=== PATIENT | female | born 1995 | race Caucasian/White ===

== ENCOUNTER 2024-05-19 08:55 | Outpatient (CLI) | payer BC, SELFPAY ==
[2024-05-19 09:37] LABS: Hematocrit 32.8 % (37.0-47.0); Hemoglobin 10.3 g/dL (12.0-15.0); Immature Platelet Fraction Pct 17.2 % (0.9-11.2); Mean Corpuscular HGB Conc 31.4 g/dl (32-36); Mean Corpuscular Hemoglobin 27.1 pg (26-34); Mean Corpuscular Volume 86.3 fl (80-100); Mean Platelet Volume 13.1 fl (7.4-10.4); Platelet Count Result 185 k/mm3 (150-375); Red Cell Distribution Width 14.4 % (11.5-14.5); White Blood Count 10.9 K/mm3 (4.5-10.0)
[2024-05-19 10:21] LABS: HIV 1/2 Ab P24 Ag Result Negative (Negative)
[2024-05-19 13:36] LABS: Rapid Plasma Reagin Non-Reactive (NonReactive)
== END 2024-05-19 08:56 | disposition home or self-care (01) ==
LOC: ANHLAB 09:01
PROVIDERS: PCP Family Medicine; Visit Provider Obstetrics & Gynecology
DX: Z34.93 Encounter for supervision of normal pregnancy, unspecified, third trimester (principal); Z3A.00 Weeks of gestation of pregnancy not specified
CPT/HCPCS: 36415; 85027; 85055; 86592; 86703; 86850; 86900; 86901; G0432

== ENCOUNTER 2024-05-21 05:23 | Inpatient (IN) | payer BC, SELFPAY ==
[2024-05-21] VITALS (57 sets, daily range): BP systolic 83–131; BP diastolic 49–108; PULSE 55–104; RESP 12–18; TEMP 36.7–36.9; O2SAT 94–100; BMI 30.5
--- NOTE | 2024-05-21 06:14 | PM.IMHP ---
H&P: HPI History of Present Illness Date/Time: 05/21/24 06:14 Chief Complaint: Repeat section Narrative: 29-year-old 2 para 1 with previous section and a last menstrual period of 08/21/2023, EDC of 05/27/2024, presents at 39 weeks gestation for repeat section. She is negative for group B strep that she had early ultrasound confirming dates she declined attempt at vaginal after Review of Systems Review of Systems: All systems reviewed & are unremarkable except as noted in HPI and below PMFSH Family History Family History Father Cerebrovascular accident Social History Social History Substance use: never Spiritual care concerns: No Meds Home Medications and Allergies Home Medications Medication Instructions Recorded Confirmed Type vits no.126-ferrous fum 1 tablet PO DAILY 05/14/24 05/14/24 History 28 mg iron-folic acid 800 mcg tablet (Classic ) Allergies Allergy/AdvReac Type Severity Reaction Status Date / Time No Known Allergies Allergy Verified 05/14/24 13:29 Exam Const: General: cooperative, healthy appearing and comfortable Nutritional Appearance: average body habitus Orientation/consciousness: oriented to person, oriented to place and oriented to time HENMT: Head: normal to inspection Resp: Effort & Inspection: normal respiratory effort Cardio: Rate: regular rate Rhythm: regular rhythm Heart sounds: S1 normal heart sound present and S2 normal heart sound present GI: Inspection: normal to inspection ( gravid soft uterus) : External Female Exam: normal external appearance Speculum Exam - Vagina: normal appearance of the vagina Speculum Exam - Cervix: normal appearance of the cervix Assessment and Plan Assessment and plan (1) Term : Code(s): Z34.90 - Encounter for supervision of normal , unspecified, unspecified trimester Status: Acute (2) Previous section: Code(s): Z98.891 - History of uterine scar from previous surgery Status: Acute Assessment and Plan: repeat low-transverse section
--- NOTE | 2024-05-21 06:17 | WPDHPUPDATE1 ---
History and Physical Update Update Date/Time: 05/21/24 06:17 History and Physical has been reviewed, including an updated exam of the patient. There are NO changes in the patient's condition. Risks, benefits, and alternatives have been discussed and questions answered. Patient agrees to proceed with procedure.
[2024-05-21] MEDS: ACETAMINOPHEN 500 MG TABLET 1000 MG PO (06:18)
[2024-05-21] MEDS: LACTATED RINGERS 1,000 ML 999 ML IV CONT ×2 (06:28→07:08)
--- NOTE | 2024-05-21 06:31 | LDADM ---
This patient, Sandy Jiang, was admitted to Labor/Delivery/Recovery 120 on 05/21/24 at 05:23. Plans for labor, pain management and were discussed with patient. Patient/family oriented to hospital policies and general routines including ID bracelet, bed and alarms, visiting hours, pain management, procedures, bathroom and other care routines, personal items, smoking policy, room service/diet and guest tray routines, security routines, and visiting hours. Patient/Family are encouraged to report perceived risks to care and to ask questions if they do not understand what they are told or what they should do. See OBIX for further documentation.
[2024-05-21] MEDS: ONDANSETRON INJ 4 MG/2 ML VIAL IV PUSH (07:04)
[2024-05-21] MEDS: FAMOTIDINE 20 MG/2 ML VIAL IV PUSH (07:06)
--- NOTE | 2024-05-21 07:18 | P.PNAN_ITS ---
Anes - Initial Pre Proc Eval Procedure: Operation Date: 05/21/24 07:30 Proposed Procedures p Repeat Section - Souleymane Davis MD Date/Time: 05/21/24 07:18 Surgeon: Souleymane Davis MD Pre Op Diagnosis: C/S Patient Data Age: 29 Gender: F Height: 1.52 m Weight: 71 kg Last Vital Signs Pulse 76 05/21/24 06:45 BP 115/76 05/21/24 06:45 Allergies Allergy/AdvReac Type Severity Reaction Status Date / Time No Known Allergies Allergy Verified 05/14/24 13:29 Home Medications Medication Instructions Recorded Confirmed Type vits no.126-ferrous fum 1 tablet PO DAILY 05/14/24 05/21/24 History 28 mg iron-folic acid 800 mcg tablet (Classic ) hydrocodone 5 mg-acetaminophen 325 1 tablet PO Q4H PRN pain #30 tabs 05/21/24 Rx mg tablet Patient hx anesthesia problems: none Family hx anesthesia problems: none Results Review: All pre-operative results and documents have been reviewed as part of the pre- operative evaluation. [facility] Surgical History Surgical History (Updated 05/21/24 @ 07:18 by Souleymane Leonardo MD) Previous section Family History Family History Father Cerebrovascular accident Social History Social History Smoking status: Never smoker Second hand tobacco smoke exposure: Yes Substance use: never Do You Feel Safe in your Home?: Yes Lack of Transportation: No Lack of Food: Never True Current Housing: I Have Housing Concerned About Future Housing: No Difficulty Paying Gas/Electric Bills: No Difficulty Paying for Meds: No Currently Unemployed: No Education: Associate Degree Difficulty w/ Childcare or Family Care: No Spiritual care concerns: No Anes - Eval Final PreProcedure Day of Procedure 05/21/24 07:18 Patient weight: overweight Heart: regular rate and rhythm Lungs: clear to auscultation Airway: Mallampati scale class II Neurological: alert and oriented Last oral intake: >/= 8 hours ASA classification: II Emergent: no Anesthetic plan: proceed Anesthesia type and monitoring: regional spinal and standard monitoring Results Review: All pre-operative results and documents have been reviewed as part of the pre- operative evaluation. Informed Consent: The patient's anesthetic plan and its attendant risks and benefits were discussed with the patient/family/POA. Questions were solicited and answers provided to the satisfaction of the patient/family/POA.
[2024-05-21] MEDS: ceFAZolin 2 GM/D5W 50 ML 2 GM/50 ML BAG IVPB (07:46)
--- NOTE | 2024-05-21 08:31 | W.PM.OBCSD ---
OB - Delivery Note Procedure Delivery date: 05/21/24 Pre-op diagnosis: Previous Delivery Post-op Diagnosis: Same Induction method: None Delivery monitor: External FHT Prior to decision for section, ACOG/SM labor guidelines were considered and discussed with the patient and staff. Decision made to proceed with the section.: Yes Procedure Performed: Repeat Surgeon: Souleymane Davis MD Anesthesia type: Spinal Description of Procedure/Findings: Patient was prepped draped in normal sterile fashion placed in the supine position. Under excellent spinal anesthetic the previous Pfannenstiel incision was progressed through the layers to the fascia. Fascia incised midline carried up fashion bilaterally. Underlying muscles sharply dissected. Parietal peritoneum oblique a clamps and by sharp dissection carried superiorly and inferiorly dome of the bladder. Bladder blade placed bladder flap formed. Low-transverse incision made head delivered in the NIVIA position. Anterior posterior shoulder delivered spontaneously. Cord clamped x2 and passed off the table given Apgars of 8 and 9 at 1 and 5minutes respectively. Placenta delivered intact manually. Uterus delivered the abdomen wrapped in a moist towel. After assuring no membranes or debris remained uterus, the uterus was closed with continuous running locking 0 Vicryl from lateral edge to lateral edge. This was followed by 2nd imbricating running locking 0 Vicryl from lateral edge to lateral edge. Hemostasis was assured. The ovaries and tubes appeared within normal limits. The uterus returned the abdomen. The hysterotomy incision inspected 1 last time and noted be hemostatic. The raw area sprinkled with [place] term. The laps removed and accounted for. The fascia closed with continuous running 0 Vicryl from lateral edge to lateral edge. Irrigation subcutaneous layer and the skin closed with 4 Monocryl and glue. QBL was 285cc. All sponge, needle, instrument counts were correct. There were no immediate complications Specimen: No Estimated Blood Loss: 285 Drains: No Packing: No Pathology: None sent Complications: No immediate complications Condition: Stable Disposition: PACU Baby Date of : 05/21/24 Time of : 08:09 Gestational Age by Date: 39 Infant gender: Female Weight (pounds): 6 Weight (ounces): 15 presentation: vertex position: Right Occiput Anterior Placenta delivery description: Manual Removal Cord Vessel Description: 3 Vessels score one minute: 8 score five minutes: 9
--- NOTE | 2024-05-21 08:34 | PM.DS ---
DS: Admitting Diagnosis Discharge Date 05/23/2024 Admitting Diagnosis term /previous section DS: Discharge Diagnosis Discharge Diagnosis (1) Term : Code(s): Z34.90 - Encounter for supervision of normal , unspecified, unspecified trimester Status: Acute DS: Summary Hospital Course Reason for hospitalization: patient was admitted on 05/21/2024 for repeat section. Procedure was unremarkable Hospital Course: patient's hospital course unremarkable. She remained afebrile. She was up, voiding without difficulty, eating diet, and generally without complaints. Time Spent with Patient Time attestation: Total time spent providing and/or coordinating discharge services: Exam Const: General: cooperative, healthy appearing and comfortable Orientation/consciousness: oriented to person, oriented to place and oriented to time HENMT: Head: normal to inspection Resp: Effort & Inspection: normal respiratory effort Cardio: Rate: regular rate Rhythm: regular rhythm Heart sounds: S1 normal heart sound present and S2 normal heart sound present GI: Inspection: normal to inspection and incision ( Wound is clean dry and intact) Discharge Plan Discharge Attending physician on discharge: Souleymane Dawson Discharging Clinician: Souleymane Dawson Patient Disposition: Home, Self-Care Activity: may shower, no straining, no driving and pelvic rest Diet: heart healthy Wound Care Instructions: follow printed instructions Patient Instructions: Antibiotic Form Patient Language: German Stand Alone Forms: General Discharge Information Follow-up/Referrals: Souleymane Dawson MD [Physician] - Discharge Medications: New hydrocodone-acetaminophen 5-325 mg tablet 1 tablet PO Q4H PRN (Reason: pain) Qty: 30 0RF Continued Classic 28 mg iron- 800 mcg Tablet 1 tablet PO DAILY Date of admission: 05/21/24 05:23 Primary Care Provider: RitaTimothy Admitting Provider: Souleymane Dawson Attending physician on admission: Souleymane Dawson Condition: Stable
[2024-05-21] MEDS: OXYTOCIN 30 UNITS/NS 500 ML 30 UNITS/500 ML BAG 125 UNITS IV CONT (08:50)
[2024-05-21] MEDS: KETOROLAC 30 MG/ML VIAL (*BKC) (09:06)
[2024-05-21] MEDS: LIDOCAINE 5% PATCH 1 PATCH TRANSDERM (09:08)
[2024-05-21] MEDS: fentaNYL CITRATE INJ (*CRX) 100 MCG/2 ML VIAL IV PUSH (09:12)
[2024-05-21] MEDS: fentaNYL CITRATE INJ (*CRX) 100 MCG/2 ML VIAL 25 MCG IV PUSH ×2 (09:29→10:38)
[2024-05-21] MEDS: KETOROLAC 15 MG/ML VIAL (*BKC) IV PUSH ×2 (12:07→17:35)
[2024-05-21] MEDS: SIMETHICONE 80 MG TAB.CHEW PO ×2 (12:07→17:35)
[2024-05-21] MEDS: ACETAMINOPHEN 325 MG TABLET 650 MG BY MOUTH ×2 (12:07→17:35)
--- NOTE | 2024-05-21 12:25 | PC.NURSE ---
Observed mother feeding with latched to the [left] breast in [cradle] position. [was] able to maintain an appropriate latch. Mother [declines] nipple pain/discomfort [throughout feeding]. Encouraged mother to keep infant awake and nursing at the breast for 15 minutes. Mother states that she breastfed her first baby. We discussed that baby may have some sleepy feedings in her first 24 hours of life, and if mom needs any assistance waking her or getting her to latch she can call for assistance. Reviewed using the blue feeding sheet to record time and duration of feeding. Mother voiced understanding of the education shared, to call for assistance if the does not latch or if there is discomfort with . name/number on communication board. Reported to the Primary RN.?
[2024-05-21] MEDS: DEXTROSE 5%/0.45% SOD CHL 1,000 ML 125 ML IV CONT (13:28)
[2024-05-21] MEDS: DOCUSATE SODIUM 100 MG CAPSULE PO (17:35)
[2024-05-21] MEDS: HYDROcodone/acetaminophen (*CRX) 5-325 MG TABLET 1 TAB PO (22:29)
[2024-05-22] MEDS: ACETAMINOPHEN 325 MG TABLET 650 MG BY MOUTH ×2 (00:16→07:06)
[2024-05-22] MEDS: KETOROLAC 15 MG/ML VIAL (*BKC) IV PUSH (00:16)
--- NOTE | 2024-05-22 07:02 | PM.OBPNVD ---
OB - PN: Subj Subjective Date/time seen: 05/22/24 07:03 Patient comments: no complaints, pain well controlled, incisional pain, tolerating diet and flatus present baby status: doing well and nursing well OB - PN A/P Assessment and Plan (1) Term : Code(s): Z34.90 - Encounter for supervision of normal , unspecified, unspecified trimester Status: Acute Plan routine care Plan Comments: routine care Time Spent With Patient Time: Total time spent is greater than 50% in coordination of care (as documented) at patient's floor/unit and/or counseling patient: Review of Systems Review of Systems: All systems reviewed & are unremarkable except as noted in HPI and below Exam Const: General: cooperative, healthy appearing and comfortable Nutritional Appearance: average body habitus Orientation/consciousness: oriented to person, oriented to place and oriented to time Resp: Effort & Inspection: normal respiratory effort Cardio: Rate: regular rate Rhythm: regular rhythm Heart sounds: S1 normal heart sound present and S2 normal heart sound present GI: Inspection: normal to inspection
[2024-05-22] MEDS: IBUPROFEN 600 MG TABLET PO ×3 (07:06→19:36)
[2024-05-22 08:00] VITALS: BP 99/51; PULSE 71; RESP 16; TEMP 36.8; O2SAT 99
[2024-05-22] MEDS: SIMETHICONE 80 MG TAB.CHEW PO ×3 (08:02→16:37)
[2024-05-22] MEDS: MULTIVIT/MIN/PREN/FOL AC/IRON TABLET 1 TAB PO (08:02)
[2024-05-22] MEDS: DOCUSATE SODIUM 100 MG CAPSULE PO ×2 (08:02→16:37)
[2024-05-22] MEDS: POLYSACCHARIDE IRON COMPLEX 150 MG CAPSULE PO ×2 (08:02→16:37)
[2024-05-22 08:09] LABS: Basophils Percent Auto 0.4 % (0.2-1.2); Eosinophils Absolute Auto 0.1 K/mm3 (0-0.3); Eosinophils Percent Auto 0.9 % (0-4.4); Hematocrit 24.8 % (37.0-47.0); Hemoglobin 8.2 g/dL (12.0-15.0); Immature Granulocyte Absolute 0.07 K/mm3 (0.00-0.031); Immature Granulocyte Percent A 0.6 % (0-0.5); Lymphocytes Absolute Auto 2.32 K/mm3 (0.9-3.2); Lymphocytes Percent Auto 21.2 % (18.3-44.2); Mean Corpuscular HGB Conc 33.1 g/dl (32-36); Mean Corpuscular Hemoglobin 27.9 pg (26-34); Mean Corpuscular Volume 84.4 fl (80-100); Mean Platelet Volume 12.9 fl (7.4-10.4); Monocytes Absolute Auto 0.7 K/mm3 (0.1-0.6); Monocytes Percent Auto 6.4 % (2.6-8.5); Neutrophils Absolute Auto 7.7 K/mm3 (1.3-6.7); Neutrophils Percent Auto 70.5 % (45.5-73.1); Platelet Count Result 133 k/mm3 (150-375); Red Blood Count 2.94 M/mm3 (4.2-5.4); Red Cell Distribution Width 14.5 % (11.5-14.5); White Blood Count 10.9 K/mm3 (4.5-10.0)
--- NOTE | 2024-05-22 11:25 | PC.NURSE ---
Introductions were made, then consulted with patient to assess needs related to . Discussed with mother her?plans to feed?her and the?experience so far. She says that baby is doing well, she is feeding for short 5-10 minute feedings. Mom says baby seems satisfied after feeding and sleeps. Mom declines pain with feeding. Resources provided for inpatient and outpatient services with the feeding sheet, mom/baby guide, admission folder and name/number written on the communication board. Mother voiced understanding of information and will call if there is a request for assistance. Reported to the Primary RN.
[2024-05-22] MEDS: HYDROcodone/acetaminophen (*CRX) 5-325 MG TABLET 1 TAB PO (13:24)
--- NOTE | 2024-05-22 13:59 | WPDANLDPN2 ---
Anes-Prog Note L&D Date/Time: 05/22/24 13:59 Comfortable throughout: section Neuraxial method: spinal Epidural/Spinal procedure site: clean & non-tender Neuro status: Neuro function grossly intact. Cardiovascular status: normal Respiratory status: normal Airway patency: baseline Mental status: baseline Post-Op hydration status: normal Vital Signs: Last Vital Signs Temp 98.3 F 05/22/24 08:00 Pulse 71 05/22/24 08:00 Resp 16 05/22/24 08:00 BP 99/51 L 05/22/24 08:00 Pulse Ox 99 05/22/24 08:00 O2 Del Method Room Air 05/21/24 10:45 Pain score (VAS): 0/10 I/O: Intake & Output 05/21/24 05/22/24 05/22/24 23:59 07:59 15:59 Intake Total 1237 Output Total 3050 Balance -1813 Post-procedural complaints: none Patient feedback: Patient satisfied with anesthetic care.
--- NOTE | 2024-05-22 14:00 | WPDANLDNPN2 ---
Anes-Prog Note L&D-Neuraxial Date/Time: 05/22/24 14:00 Neuraxial medications: intrathecal PF morphine Opiod-related complaints: none Patient feedback: Patient satisfied with post-operative pain management.
[2024-05-22] MEDS: ACETAMINOPHEN 325 MG TABLET 650 MG PO (19:36)
[2024-05-23 00:59] VITALS: BP 110/61; PULSE 75; RESP 18; TEMP 36.6; O2SAT 100
[2024-05-23] MEDS: HYDROcodone/acetaminophen (*CRX) 5-325 MG TABLET 1 TAB PO ×2 (00:59→12:23)
[2024-05-23] MEDS: IBUPROFEN 600 MG TABLET PO ×3 (00:59→13:41)
[2024-05-23] MEDS: LIDOCAINE 5% PATCH 1 PATCH TRANSDERM (05:00)
[2024-05-23] MEDS: ACETAMINOPHEN 325 MG TABLET 650 MG PO (07:16)
[2024-05-23] MEDS: SIMETHICONE 80 MG TAB.CHEW PO ×2 (07:16→12:17)
[2024-05-23] MEDS: POLYSACCHARIDE IRON COMPLEX 150 MG CAPSULE PO (07:16)
--- NOTE | 2024-05-23 07:53 | P.PNOB_ITS ---
OB - PN: Subj Subjective Date/time seen: 05/23/24 07:53 Interval history: Patient reports feeling better after 2units of blood. OB - PN: Obj Data Labs 05/22/24 05:11 Labs: Laboratory Results - last 24 hr 05/22/24 05:11 WBC 10.9 H RBC 2.94 L Hgb 8.2 L Hct 24.8 L MCV 84.4 MCH 27.9 MCHC 33.1 RDW 14.5 Plt Count 133 L MPV 12.9 H Immature Gran % (Auto) 0.6 H Neut % (Auto) 70.5 Lymph % (Auto) 21.2 [place] % (Auto) 6.4 Eos % (Auto) 0.9 Baso % (Auto) 0.4 Lymph # (Auto) 2.32 [place] # (Auto) 0.7 H Eos # (Auto) 0.1 Baso # (Auto) 0.0 Abs Immat Gran (auto) 0.07 H Absolute Neuts (auto) 7.7 H Absolute Nucleated RBC 0.000 Nucleated RBC % 0.0 OB - PN A/P Assessment and Plan (1) Term : Code(s): Z34.90 - Encounter for supervision of normal , unspecified, unspecified trimester Status: Acute (2) Anemia: Code(s): D64.9 - Anemia, unspecified Status: Acute Plan Home today Time Spent With Patient Time: Total time spent is greater than 50% in coordination of care (as documented) at patient's floor/unit and/or counseling patient: Review of Systems 2 Review of Systems: All systems reviewed & are unremarkable except as noted in HPI and below Exam 2 Const: General: cooperative, healthy appearing, comfortable and no acute distress Orientation/consciousness: oriented to person, oriented to place and oriented to time Resp: Effort & Inspection: normal respiratory effort Cardio: Rate: regular rate Rhythm: regular rhythm Heart sounds: S1 normal heart sound present and S2 normal heart sound present GI: Inspection: normal to inspection
[2024-05-23 08:20] VITALS: BP 110/58; PULSE 72; RESP 16; TEMP 36.6; O2SAT 99
[2024-05-23] MEDS: DOCUSATE SODIUM 100 MG CAPSULE PO (09:17)
[2024-05-23] MEDS: MEASLES,MUMPS,RUBELLA VACCINE 0.5 ML VIAL SUB-Q (09:17)
[2024-05-23] MEDS: MULTIVIT/MIN/PREN/FOL AC/IRON TABLET 1 TAB PO (09:17)
--- NOTE | 2024-05-23 09:32 | PC.NURSE ---
Patient viewed the discharge video Mother & Baby Care, The First Two Weeks . Patient was given the opportunity and encouraged to ask questions. Patient verbalized understanding of information shared and has been given the mother/baby guide for home reference.
[2024-05-25 11:16] VITALS: BP 108/58; PULSE 82; RESP 16; TEMP 36.6; O2SAT 99
== END 2024-05-23 14:24 | disposition home or self-care (01) | DRG 788 ==
LOC: ANHLDR 08:35 → ANHOB2 11:01
PROVIDERS: Admitting Provider Obstetrics & Gynecology; PCP Family Medicine; Visit Provider Obstetrics & Gynecology
PROC: 10D00Z1 Extraction of Products of Conception, Low, Open Approach (ICD-10-PCS; CPT 59514; principal; 2024-05-21 07:30)
DX: O34.211 Maternal care for low transverse scar from previous cesarean delivery (principal); Z37.0 Single live birth; Z3A.39 39 weeks gestation of pregnancy; O99.02 Anemia complicating childbirth; D64.9 Anemia, unspecified
CPT/HCPCS: 36415; 85025; 90710; A9270; J0690; J1885; J2274; J2405; J2590; J3010; J7120